=== PATIENT | male | born 1980 | race Caucasian/White ===

== ENCOUNTER 2022-09-07 12:14 | Emergency (ER) | payer MEDICARE, MEDICAID, SELFPAY ==
[2022-09-07 12:22] VITALS: BP 124/94; PULSE 101; RESP 18; TEMP 36.6; O2SAT 97; BMI 26.9
--- NOTE | 2022-09-07 13:53 | ED.GENADULT ---
HPI - General Adult General Chief complaint: Wound/Laceration Stated complaint: R middle finger laceration Time Seen by Provider: 09/07/22 13:38 Source: patient Mode of arrival: ambulatory Limitations: no limitations History of Present Illness HPI narrative: 42 yold male presents to the ED for right middle finger laceration. Patient states he cut his finger by accident with a clean steak knife. Patient denies any other trauma. Patient states up-to-date with tetanus. Patient has complete range of motion of finger. Patient denies any numbness/tingling or decreased movement of finger or extremity. Related Data Allergies Allergy/AdvReac Type Severity Reaction Status Date / Time SEAFOOD Allergy Severe ANAPHYLAXIS Uncoded 12/29/19 15:27 Review of Systems Review of Systems: right middle finger laceration Yes all other systems are reviewed and are negative [facility] Social History Social History Advance Directives: No Advance Directives Information Provided: No Physical Exam ED Vital Signs: Vital Signs - 24 hr 09/07/22 12:22 Temperature 97.8 F Pulse Rate 101 H Respiratory Rate 18 Blood Pressure 124/94 H Pulse Oximetry 97 Oxygen Delivery Method Room Air BMI result Body Mass Index 26.9 Const General: cooperative, healthy appearing, comfortable, no acute distress, well developed, alert, awake and Physically active Orientation/consciousness: oriented to person, oriented to place, oriented to time and patient oriented x3 HENMT Head: Yes normal to inspection, Yes No palpable skull fracture present, Yes normocephalic, Yes atraumatic and No abrasion Eyes General: appearance normal, both eyes and all related structures Neck Neck: Yes normal visual inspection, Yes full ROM, Yes no lymphadenopathy, Yes no meningeal signs, Yes trachea midline, Yes supple, No anterior neck swelling and No tender Chest Chest palpation & inspection: normal inspection of the chest and normal palpation of entire chest wall Resp Effort & Inspection: normal respiratory effort and able to speak in complete sentences Auscultation: clear to auscultation bilaterally Cardio Jugular venous distension: no JVD Heart sounds: S1 normal heart sound present and S2 normal heart sound present GI Inspection: Yes normal to inspection and No abdominal wall ecchymosis Palpation (GI): Soft to palpation, not firm, nontender, no guarding and not rigid General: No CVA tenderness and Yes no CVA tenderness Back/Spine/Pelvis Back: no CVA tenderness, No CVA tenderness and No back tenderness Skin General skin exam: no rashes or lesions noted and elasticity normal Neuro General: oriented to person, oriented to place, oriented to time, patient oriented x3, gait normal, tone normal, moves all extremities, Normal light touch and pain sensation, no meningeal signs, no focal motor deficits, CN's II-XI intact bilaterally and normal sensation to monofilament Extrem General: Yes normal to inspection and Yes full ROM Hand/finger images: 1. Very superficial abrasion. Bleeding controlled. Capillary refills intact. Negative for signs of nerve or tendon injury. Motor/neuro/vascular exam of whole extremity intact Psych Appearance: grossly normal, well kempt and not disheveled Course Course Course Narrative: 42-year-old male with right middle finger laceration abrasion. Up-to-date with tetanus. Medical Decision Making Medical Decision Making [facility] Narrative: 42-year-old male presents to the ED for laceration of right middle finger caused by clean steak knife. Negative for signs of tendon or nerve injury on physical exam. Bleeding controlled. No need for x-ray negative for tenderness on palpation. Wound clean with sterile saline and Betadine iodine. Dermabond placed on abrasion to close Differential Diagnosis Differential Diagnoses: The differential diagnosis associated with the presentation includes (Partial amputation, skin tear, laceration, finger fracture, avulsion,) Tests considered The following testing was considered but not selected: X-ray of hand Discharge Plan Discharge Clinical Impression: Abrasion Patient Disposition: Home, Self-Care Instructions: Abrasion (ED) Additional Instructions: Laceration repair not indicated. Your finger was glued. Keep finger dried the 1st 24 hours. Return to the ED immediately for any swelling, redness, pus discharge, inability to move fingers, fever, chills, blue black discoloration, or any other concerning symptoms. Please follow-up with the primary care provider. Interventions: ED Discharge Assessment Last Done: 09/07/22 14:26 Discharge Date/Time: 09/07/22 14:28 Print Language: Bengali
== END 2022-09-07 14:28 | disposition home or self-care (01) ==
PROVIDERS: Emergency Provider Internal Medicine; PCP Family Medicine
DX: S60.412A Abrasion of right middle finger, initial encounter (principal); M79.641 Pain in right hand; W26.0XXA Contact with knife, initial encounter; Y93.9 Activity, unspecified; Y92.9 Unspecified place or not applicable; Y99.9 Unspecified external cause status
CPT/HCPCS: 12001; 99283

== ENCOUNTER 2022-10-02 05:00 | Emergency (ER) | payer MEDICARE, MEDICAID, SELFPAY ==
[2022-10-02 05:07] VITALS: BP 133/88; PULSE 102; RESP 16; TEMP 36.4; O2SAT 97; BMI 26.6
--- NOTE | 2022-10-02 07:14 | PC.NURSE ---
ATTEMPTED TO CALL PATIENT INTO ED. NO ANSWER IN WAITING ROOM
== END 2022-10-02 07:20 | disposition left against medical advice (07) ==
PROVIDERS: Emergency Provider Emergency Medicine
DX: R22.0 Localized swelling, mass and lump, head (principal)
CPT/HCPCS: 99281

== ENCOUNTER 2024-06-26 13:36 | Emergency (ER) | payer MEDICARE, MEDICAID, SELFPAY ==
--- NOTE | ~2024-06-26 | XR_ITS ---
CLINICAL HISTORY: infection at base of 3rd toe 3 view right foot Comparison: None Findings: No fracture or malalignment. There is joint space narrowing of the 1st metatarsophalangeal joint. No soft tissue gas or bone destruction IMPRESSION: No soft tissue gas or evidence of bone destruction to suggest osteomyelitis. This document has been electronically signed by: Antwan Francois MD on 06/26/2024 17:41:04
[2024-06-26 14:01] VITALS: BP 143/78; PULSE 109; RESP 16; TEMP 36.6; O2SAT 98; BMI 28.7
--- NOTE | 2024-06-26 14:01 | ED.EXTPRO ---
HPI - Extremity Problem General Chief complaint: Skin/Abscess/Foreign Body Stated complaint: RT foot pain Time Seen by Provider: 06/26/24 15:54 History of Present Illness ED Provider: Kelin HU Narrative: The patient is a 43-year-old male who has a history of hidradenitis suppurativa but is otherwise generally healthy. He has no history of diabetes. The patient developed a lesion on the dorsum of his right foot about 6 days ago that seemed like a pimple. He went to his regular doctor's office the next day and was prescribed amoxicillin 875 mg b.i.d.. He has been taking the antibiotic but the area of skin abnormality has gotten bigger and he has developed generalized redness to the dorsum of his foot. He has not had a fever. He does not feel that the redness has spread above his ankle. He denies any injury or foreign body or anything else that might explain how this apparent infection seemed to develop. He denies IV drug use. Related Data Previous Rx's ?Medication ?Instructions ?Recorded cephalexin 500 mg capsule 500 mg PO QID 10 days #40 caps 06/26/24 doxycycline monohydrate 100 mg 100 mg PO BID #20 caps 06/26/24 capsule Allergies Allergy/AdvReac Type Severity Reaction Status Date / Time egg Allergy Gastrointestinal Verified 06/26/24 14:06 Upset SEAFOOD Allergy Severe ANAPHYLAXIS Uncoded 06/26/24 14:06 Review of Systems Review of Systems: Yes all other systems are reviewed and are negative [facility] Social History Social History Advance Directives: No Advance Directives Information Provided: No Physical Exam Vital Signs: Vital Signs: Last Vital Signs Temp 97.7 F 06/26/24 17:57 Pulse 86 06/26/24 17:57 Resp 16 06/26/24 17:57 BP 145/92 H 06/26/24 17:57 Pulse Ox 99 06/26/24 17:57 O2 Del Method Room Air 06/26/24 17:57 BMI result Body Mass Index 28.7 Const: Other: The patient is a slim 43-year-old male who looks as though he is generally in good health. He has obvious skin changes to the dorsum of the right foot but otherwise does not appear obviously acutely ill. HEENT: Other: Face is symmetrical, mucous membranes moist. Eyes: General: appearance normal, both eyes and all related structures Neck: Neck: Yes full ROM Resp: Effort & Inspection: normal respiratory effort Auscultation: clear to auscultation bilaterally Cardio: Rate: regular rate Rhythm: regular rhythm Heart sounds: S1 normal heart sound present and S2 normal heart sound present Skin: Other: The patient has skin changes in the dorsum of the right foot. At the base of the middle toe is a large area of swelling and discoloration to the skin suggestive of an abscess. There is also generalized erythema to the remainder of the dorsum of the right foot. Neuro: Other: The patient is awake and alert with a normal mental status. Cranial nerves are grossly intact. He moves his extremities normally and appropriately. He seems neurologically intact. Normal sensation in the feet. Extrem: Other: The patient has obvious skin changes to the dorsum of the right foot. There is a large area of swelling and discoloration at the base of the right 3rd toe with generalized erythema to the dorsum of the foot. However I am able to put all the joints of the toes through a good range of motion without apparent discomfort. He can move the ankle easily. There is no erythema extending above the ankle. Course Course Course Narrative: This is a Rapid Medical Examination (RME) performed by Gin Choi PA-C in triage. Full HPI, ROS, assessment and treatment plan per primary provider in the Main ED. 43 yo male presents to the ER for evaluation of worsening right foot pain, purple discoloration for the last 5-6 days. seen at PCP last week, had labs and XR at that time. started on PO augmentin for the last 2 days. reports symptoms are getting worse. exam with a large blood blister at the base of the 3rd toe with cellulitis on the top of the foot. no hx DM. denies injury or trauma Plan: ?I&D, labs Medications Administered Discontinued Medications Generic Name Dose Route Start Last Admin Trade Name Freq PRN Reason Stop Dose Admin Bacitracin 1 appl 06/26/24 16:19 06/26/24 16:31 Bacitracin Oint 0.9 Gm Packet TOPICAL 06/26/24 16:20 1 appl ONCE ONE Administration Protocol Ceftriaxone Sodium 2 gm 06/26/24 16:13 06/26/24 16:30 Ceftriaxone Sodium 2 Gm Vial IVPUSH 06/26/24 16:14 2 gm ONCE ONE Administration Doxycycline Hyclate 100 mg/ 250 mls @ 166.67 mls/hr 06/26/24 16:13 06/26/24 17:52 Sodium Chloride IV 06/26/24 17:42 Infused ONCE ONE Infusion Medical Decision Making Medical Decision Making [facility] Narrative: The patient is a 43-year-old male who has a history of hidradenitis suppurativa but who was otherwise in generally good health and does not a diabetic. He has what seems to be an abscess to the skin of the dorsum of the foot at the base of the 3rd toe associated with erythema over the remainder of the dorsum of the foot. The reason for this infection is not clear. He denies any injury. He denies any IV drug use. I made an incision through the abscess and expressed a large amount of pus. This was swabbed and sent for culture. Although the infection on the foot appears impressive the patient is an otherwise healthy 43-year-old who is not a diabetic and there is no lymphangitic streaking up the leg. The patient has not had a fever. He has a white count of 9.8 with 75.1% neutrophils (a minimal left shift) and a minimally elevated CRP of 0.76. X-ray shows no foreign body or bony destruction. The patient was given 2 g of IV ceftriaxone and 100 mg of IV doxycycline after his abscess was opened and drained. Since the patient is otherwise young and fairly healthy and since there does not seem to be signs of systemic illness I think a trial of outpatient management is not unreasonable. He will be prescribed cephalexin and doxycycline. He was given the contact information with surgical office for prompt follow up. Lab Data 06/26/24 14:37 06/26/24 14:37 Labs: Lab Results 06/26/24 Range/Units 14:37 WBC 9.8 (4.8-10.8) X10*3/uL RBC 4.44 L (4.60-5.80) X10*6/uL Hgb 14.1 (14.0-18.0) g/dl Hct 40.7 L (42.0-52.0) % MCV 91.7 (80.0-98.0) fL MCH 31.8 (27.0-33.0) pg MCHC 34.6 (31.0-36.0) g/dl RDW 12.7 (11.0-16.0) % Plt Count 217 (160-400) X10*3/uL MPV 9.1 L (9.4-12.4) fL Immature Gran % (Auto) 0.8 H (0.0-0.4) % Neut % (Auto) 75.1 H (45-73) % Lymph % (Auto) 14.5 L (20-40) % [place] % (Auto) 6.2 (2-11) % Eos % (Auto) 3.0 (0-4) % Baso % (Auto) 0.4 (0-2) % Lymph # (Auto) 1.4 (1.2-4.9) X10*3/uL [place] # (Auto) 0.6 (0.1-1.2) X10*3/uL Eos # (Auto) 0.3 (0.0-0.4) X10*3/uL Baso # (Auto) 0.0 (0.0-0.2) X10*3/uL Abs Immat Gran (auto) 0.08 H (0.00-0.03) X10*3/uL Absolute Neuts (auto) 7.4 (2.0-8.3) x10*3/uL Absolute Nucleated RBC 0.000 (0.0-0.012) X10*3/uL Nucleated RBC % (auto) 0.0 (0.0-0.2) /100WBC ESR 7 (0-15) MM/HR Sodium 141 (135-145) mmol/L Potassium 4.1 (3.3-5.1) mmol/L Chloride 110 H (96-108) mmol/L Carbon Dioxide 25 (22-29) mmol/L Anion Gap 10 L (12-20) BUN 11 (9-16) mg/dL Creatinine 0.88 (0.5-1.4) mg/dL Estim Creat Clear Calc 117.7 Estimated GFR > 60 Random Glucose 95 (60-115) mg/dL Calcium 9.1 (8.4-10.2) mg/dL Magnesium 2.0 (1.6-2.6) mg/dL Total Bilirubin 0.4 (0.0-1.0) mg/dL Direct Bilirubin 0.2 (0.0-0.5) mg/dL AST 23 (5-37) U/L ALT 29 (0-40) U/L Alkaline Phosphatase 75 (39-117) U/L C-Reactive Protein 0.76 H (< or = 0.50) mg/dL Total Protein 7.1 (6.5-8.0) g/dL Albumin 4.1 (3.5-5.0) g/dL Procedures Abscess I/D Site: foot Side (if applicable): right Technique: incised with blade Amount of fluid expressed (mL): 10 Sent for culture/gram staining?: Yes Irrigation: No Packing used?: none Discharge Plan Discharge Clinical Impression: Cellulitis and abscess of foot Patient Disposition: Home, Self-Care Instructions: Cellulitis (ED), Abscess (ED), Incision and Drainage (ED) Additional Instructions: You have an abscess and a cellulitis of the skin of your right foot. The abscess has been opened. For the first few days I would recommend staying off the foot as much as you can. Keep the right foot elevated. You may soak the foot in warm water for 5-10 minutes every few hours. This may help with drainage from your abscess. Please apply bacitracin or Neosporin to the open wound at other times and keep the wound covered with a Band-Aid or gauze. Please take the antibiotics as prescribed. 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 Please call the surgery office in the morning for a follow up appointment in the next few days to check on your abscess. Again I would recommend resting and keeping your right foot elevated and trying to stay off the foot as much as possible. Also stay in touch with your regular doctor's office. Return to the emergency room if you feel things are getting worse instead of better. Prescriptions: New cephalexin 500 mg capsule 500 mg PO QID 10 Days Qty: 40 0RF doxycycline monohydrate 100 mg capsule 100 mg PO BID Qty: 20 0RF [place]: [facility] [Provider Group] (Abscess right foot) Mike Lowry MD [Physician] - (Right foot infection) Interventions: ED Discharge Assessment Last Done: 06/26/24 17:57 Discharge Date/Time: 06/26/24 17:58 Print Language: Andorran
[2024-06-26 14:41] LABS: MANUAL DIFF FLAG NO
[2024-06-26 14:44] LABS: Basophils Percent Auto 0.4 % (0-2); Eosinophils Absolute Auto 0.3 X10*3/uL (0.0-0.4); Hematocrit 40.7 % (42.0-52.0); Hemoglobin 14.1 g/dl (14.0-18.0); Imm Gran Abs Auto 0.08 X10*3/uL (0.00-0.03); Imm Gran Pct Auto 0.8 % (0.0-0.4); Lymphocytes Absolute Auto 1.4 X10*3/uL (1.2-4.9); Lymphocytes Percent Auto 14.5 % (20-40); Mean Corpuscular HGB Conc 34.6 g/dl (31.0-36.0); Mean Corpuscular Hemoglobin 31.8 pg (27.0-33.0); Mean Corpuscular Volume 91.7 fL (80.0-98.0); Mean Platelet Volume 9.1 fL (9.4-12.4); Monocytes Absolute Auto 0.6 X10*3/uL (0.1-1.2); Monocytes Percent Auto 6.2 % (2-11); Neutrophils Absolute Auto 7.4 x10*3/uL (2.0-8.3); Neutrophils Percent Auto 75.1 % (45-73); Platelet Count 217 X10*3/uL (160-400); Red Blood Count 4.44 X10*6/uL (4.60-5.80); Red Cell Distribution Width 12.7 % (11.0-16.0); White Blood Count 9.8 X10*3/uL (4.8-10.8)
[2024-06-26 15:04] LABS: Alanine Aminotransferase 29 U/L (0-40); Albumin Level 4.1 g/dL (3.5-5.0); Alkaline Phosphatase 75 U/L (39-117); Anion Gap 10 (12-20); Aspartate Amino Transferase 23 U/L (5-37); Bilirubin Direct 0.2 mg/dL (0.0-0.5); Bilirubin Total 0.4 mg/dL (0.0-1.0); Blood Urea Nitrogen 11 mg/dL (9-16); C Reactive Protein 0.76 mg/dL (< or = 0.50); Calcium 9.1 mg/dL (8.4-10.2); Carbon Dioxide 25 mmol/L (22-29); Chloride 110 mmol/L (96-108); Creatinine Clr Calc Pharmacy 117.7; Estimated Glomerular Filt Rate > 60; Glucose Random 95 mg/dL (60-115); Potassium 4.1 mmol/L (3.3-5.1); Sodium 141 mmol/L (135-145); Total Protein 7.1 g/dL (6.5-8.0)
[2024-06-26 15:29] LABS: Erythrocyte Sedimentation Rate 7 MM/HR (0-15)
[2024-06-26] MEDS: cefTRIAXone sodium 2 GM VIAL IVPUSH (16:30)
[2024-06-26] MEDS: Doxycycline Hyclate 100 MG in 0.9 % Sodium Chloride 250 ML 166.67 MG IV (16:31)
[2024-06-26] MEDS: Bacitracin Oint 0.9 GM PACKET 1 APPL TOPICAL (16:31)
[2024-06-26 16:38] VITALS: BP 145/92; PULSE 86; RESP 16; TEMP 36.5; O2SAT 99
[2024-06-26 17:57] VITALS: BP 145/92; PULSE 86; RESP 16; TEMP 36.5; O2SAT 99
== END 2024-06-26 17:58 | disposition home or self-care (01) ==
PROVIDERS: Physician Assistant; Emergency Provider Emergency Medicine
DX: L03.115 Cellulitis of right lower limb (principal); L02.611 Cutaneous abscess of right foot; M79.671 Pain in right foot
CPT/HCPCS: 10060; 36415; 73630; 80048; 80076; 83735; 85025; 85652; 86140; 87070; 87077; 87186; 87205; 96365; 96375; 99283; 99284; J0696

== ENCOUNTER → 2024-06-26 16:21 | Outpatient (BNV) | payer MEDICARE, MEDICAID, SELFPAY | PROVIDERS: Emergency Provider Emergency Medicine; Visit Provider Radiology Vascular & Interventional Radiology | DX: L08.9 Local infection of the skin and subcutaneous tissue, unspecified (principal) | CPT/HCPCS: 73630 ==

== ENCOUNTER 2024-06-30 10:44 | Outpatient (AMB) | payer MEDICARE, MEDICAID, SELFPAY ==
--- NOTE | 2024-06-30 10:52 | MHC.OFFVIS ---
Vital Signs 06/30/24 11:04 Height 5 ft 8 in Weight 189 lb BMI 28.7 BP 148/88 H Blood Pressure Location Rt brachial Position Sitting Pulse 98 Pulse Source Pulse Oximeter Pulse Oximetry (%) 96 Oxygen Delivery Method Room Air Intake Visit Reasons: infected foot wound Intake Note: ESTABLISHED PATIENT for ER FUV. Seen 06/26 for R foot pain + infection. Abx therapy rx'd by ED. Chief Complaint; Pt denies any specific concerns at this time. FUV regarding abx and to have physical eval of the foot. Allergies egg Allergy (Verified 06/26/24 14:06) Gastrointestinal Upset SEAFOOD Allergy (Severe, Uncoded 06/26/24 14:06) ANAPHYLAXIS HPI Comments Details: Patient presents with a friend to have evaluation/follow-up of a dorsum of right foot wound. He had this incised and drained in the ER a few days ago and presents here for further evaluation. He is completing his antibiotic course. Chart was reviewed and patient evaluated. He has never had such a problem before although he has history of hidradenitis suppurativa which is unrelated to this. Physical Exam Vital Signs: Last Vital Signs Pulse 98 06/30/24 11:04 BP 148/88 H 06/30/24 11:04 Pulse Ox 96 06/30/24 11:04 Oxygen Delivery Method Room Air 06/30/24 11:04 BMI result Body Mass Index 28.7 Extrem Other: Dorsum distal right foot roughly 3 x 2 cm area of in the 1st and 2nd toe demonstrating granulating tissue but no active infection or cellulitis. Bacitracin and sterile dressing applied Assessment & Plan Assessment & Plan (1) Wound, open, foot: Code(s): S91.309A - Unspecified open wound, unspecified foot, initial encounter Category: Surgical Plan Patient was been given local instructions including a daily dressing change preceded by shower and bacitracin and dressing, elevate the extremity as much as possible and we will see me as directed or p.r.n.. All questions answered. Explained to him that he will have an eschar/scab followed by new skin which were placed through scab. This process will take anywhere from 2-3 weeks time. Coding Level of Care Code New Pt Level 4 (73051) Diagnoses Wound, open, foot S91.309A
[2024-06-30 11:04] VITALS: BP 148/88; PULSE 98; O2SAT 96; BMI 28.7
== END 2024-06-30 11:07 | disposition home or self-care (01) ==
PROVIDERS: Visit Provider Surgery
DX: S91.309A Unspecified open wound, unspecified foot, initial encounter (principal)
CPT/HCPCS: 99204

== ENCOUNTER → 2024-06-30 10:44 | Outpatient (BNVA) | payer MEDICARE, MEDICAID, SELFPAY | PROVIDERS: Visit Provider Surgery | DX: S91.301D Unspecified open wound, right foot, subsequent encounter (principal); X58.XXXD Exposure to other specified factors, subsequent encounter; Z79.2 Long term (current) use of antibiotics | CPT/HCPCS: 99202 ==

== ENCOUNTER 2024-07-11 12:47 | Outpatient (AMB) | payer MEDICARE, MEDICAID, SELFPAY ==
--- NOTE | 2024-07-11 12:49 | MHC.OFFVIS ---
Intake Visit Reasons: 1 week follow up infected foot wound Intake Note: Patient here for 1wk follow up Rt dorsal foot abscess. Reports improvement with Bacitracin ointment. Completed Cephalexin, Doxycycline course. Patient c/o: keeps it covered but denies oozing, bleeding. Build Engineer Required: No Accompanied by: Self / Same As Patient Allergies egg Allergy (Verified 07/11/24 13:04) Gastrointestinal Upset SEAFOOD Allergy (Severe, Uncoded 07/11/24 13:04) ANAPHYLAXIS HPI Comments Details: Patient presents for follow-up of dorsum right foot wound. He says it has markedly decreased in his symptoms and size. He has been undergoing local wound care and foreign bacitracin Physical Exam Extrem Other: Patient has an appreciable decreased in size to the dorsum of right foot wound. It is just slightly larger than that of a quarter and granulating well. Bacitracin and sterile dressing applied. Assessment & Plan Assessment & Plan (1) Wound, open, foot: Code(s): S91.309A - Unspecified open wound, unspecified foot, initial encounter Category: Surgical Plan Patient was been given local instructions as he has been doing and will otherwise follow-up p.r.n.. All questions answered. Coding Level of Care Code Tele New Pt Level 4 (63066) Diagnoses Wound, open, foot S91.309A
--- OUTSIDE RECORDS SUMMARY | 2024-07-11 14:23 | XMS_ITS | Patient Health Record ---
Author Organization [facility] Address [address] [address] Care Team Providers Care Groundskeeping Maintenance Name Role Phone Malik Ewing Primary Care Provider UnavailKELLEE Chaparro Unavailable [phone] Reason For Referral No Information Medications Medication SIG (Take, Route, Frequency, Duration) Notes Start Date End Date Status [place] Carbonate ER 450 MG TAKE 1 TABLET BY MOUTH TWICE DAILY Oral for 90 Active QUEtiapine Fumarate ER 300 MG TAKE 2 TABLETS BY MOUTH EVERY EVENING Oral for 61 Active Ventolin HFA 108 (90 Base) MCG/ACT INHALE 2 PUFFS FOUR TIMES DAILY Inhalation for 25 Active Pantoprazole Sodium 40 MG TK 1 T PO QD O ral for 90 Active Montelukast Sodium 10 MG TK 1 T PO QD Or al for 90 Active Propranolol HCl 10 MG 1 tab qhs x 1wk, t hen inc to 2 tab qhs x 1wk, then inc to 3 tab qhs x 1wk, then inc to 4 tab qhs Orally for 30 day(s) 06/18/2020 Active Carbidopa-Levodopa 25-100 MG Oral for 90 Not-Taking ALPRAZolam 2 MG (Schedule IV Drug) T COLIN 1 TABLET BY MOUTH TWICE DAILY Oral for 30 Active Social History Tobacco Use: Social History Observation Description Date Details (start date - stop date) Current Smoker NA - NA Tobacco Use/Smoking Question Answer Notes Are you a current smoker How often do you smoke cigarettes? every day How many cigarettes a day do you smoke? 11-20 Tobacco use other than smoking: Question Answer Notes Are you an other tobacco user? 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 Problem Anxiety (31868068) Anxiety (F41.9) Active confirmed Problem Tremor (66209456) Tremor (R25.1) Active confirmed Problem Bipolar 1 disorder (054410973) Bipolar 1 disorder (F31.9) Active confirmed Problem Smoker (63386271) Smoker (F17.200) Active confirmed Plan Of Treatment Pending Test Test Name Order Date PROTEIN, TOTAL AND PROTEIN ELECTROPHORES IS W/ REFL GEE 06/18/2020 COMPREHENSIVE METABOLIC PANEL 06/18/2020 CBC (H/H, RBC, INDICES, WBC, PLT) 2020 LYME DISEASE AB W/REFL TO BLOT (IGG, IGM ) 06/18/2020 BALDEMAR IFA, W/REFL TO TITER/PATTERN/CASCADE 06/18/2020 VITAMIN B12/FOLATE, SERUM PANEL 06/19/19 FERRITIN 06/18/2020 TSH W/REFLEX TO FT4 06/18/2020 VITAMIN B1 (THIAMINE), BLOOD, LC/MS/MS 0 06/18/2020 VITAMIN E (TOCOPHEROL) 06/18/2020 Insurance Providers Payer Name Payer Address Payer Phone Subscriber Number Group Number Insured Name Patient Relationship to Insured Coverage Start Date Coverage End Date MEDICARE [address] [place], [place] [id number] Nelly Kevin Self - patient is the insured [facility] [address] [place] [phone] [id number] Nelly Kevin Self - patient is the insured Medical (General) History Medical History History ICD Code Tremor R25.1 Asthma J45.909 bipolar disorder GERD IBS Vitamin D deficiency asthma Surgical History Surgery Date(Month/Year) tubes in ears
== END 2024-07-11 13:11 | disposition home or self-care (01) ==
PROVIDERS: Visit Provider Surgery
DX: S91.309A Unspecified open wound, unspecified foot, initial encounter (principal)
CPT/HCPCS: 99213

== ENCOUNTER → 2024-07-11 12:47 | Outpatient (BNVA) | payer MEDICARE, MEDICAID, SELFPAY | PROVIDERS: Visit Provider Surgery | DX: S91.301D Unspecified open wound, right foot, subsequent encounter (principal); X58.XXXD Exposure to other specified factors, subsequent encounter | CPT/HCPCS: 99212 ==

== ENCOUNTER 2024-09-02 08:16 | Inpatient (IN) | payer MEDICARE, MEDICAID, SELFPAY ==
[2024-09-02] VITALS (13 sets, daily range): BP systolic 126–164; BP diastolic 62–95; PULSE 73–112; RESP 13–18; TEMP 36.9–37.4; O2SAT 93–99; BMI 25.2; BMI 27.6
--- NOTE | ~2024-09-02 | CT_ITS ---
EXAMINATION: CT ABDOMEN AND PELVIS WITH CONTRAST CLINICAL INFORMATION: Right lower quadrant pain. COMPARISON: None available. TECHNIQUE: Multidetector volumetric images were obtained from the superior aspect of the liver through the pubic symphysis following administration 85 mL of Omnipaque 350 intravenous contrast. Sagittal and coronal reformatted images were obtained on the technologist's workstation. Oral contrast: No This CT examination was performed using dose optimization techniques as appropriate, variously including the following: *Automated exposure control *Adjustment of mA and/or kV according to patient size (this includes techniques or standardized protocols for targeted exams where dose is matched to indication/reason for exam; i.e. extremities or head) *Use of iterative reconstruction technique DLP: 469 mGy centimeter. FINDINGS: LUNG BASES: Subsegmental atelectasis, lung bases. LIVER, GALLBLADDER, AND BILIARY TREE: Liver measures 15 cm. 9 mm hypodensity in the dome of the left hepatic lobe. Portal veins, hepatic veins and intrahepatic portion of the IVC are patent. No pericholecystic fluid collection or gallbladder wall thickening. No intrahepatic or extrahepatic biliary ductal dilatation. PANCREAS: No focal mass. No peripancreatic fluid collection. No main pancreatic ductal dilatation. SPLEEN: 10 cm. No focal lesion. ADRENAL GLANDS: No nodular lesions. KIDNEYS AND URETERS: No hydronephrosis. No gross renal mass.] 2 mm nonobstructing calculus in the right kidney. 1.2 cm cyst, left kidney. BLADDER: Fluid-filled prominent and extending suprapubic just below the umbilicus. GASTROINTESTINAL TRACT: There is a 1.8 cm maximum diameter retrocecal appendix with edematous/thickened wall and narrowed lumen. There is periappendiceal edema pattern trace of fluid. No peripheral enhancing fluid collection. No overt pneumoperitoneum. Scattered air-fluid levels in the small bowel loops right hemiabdomen. Abundant stool within the large intestine. No pneumatosis intestinalis. ABDOMINAL WALL: Fat-containing umbilical and periumbilical hernia. LYMPH NODES: Mild prominent mesenteric. VASCULAR: No aneurysm or dissection, abdominal aorta. Mixed plaques in the distal abdominal aorta wall and right femoral arteries. PELVIC VISCERA: Not enlarged prostate gland. OSSEOUS STRUCTURES: Multilevel thoracolumbar spondylosis more pronounced from L1-2 to L3-4 levels resulting in grade 1 retrolisthesis L2-3 and L3-4 and L4-5 levels. Spondylolysis pars interarticularis resulting in grade 1 anterolisthesis at L5-S1. S-shaped curvature of the lumbar spine with a levoconvex rotatory component apex at L2-[address]/CT abdomen pelvis w IV con IMPRESSION: Acute probably nonruptured retrocecal appendicitis with the periappendiceal edema pattern in no overt abscess or pneumoperitoneum. Reactive prominent mesenteric lymph nodes and regional ileus. Fleischner guidelines were followed. Electronically signed by: Jose Raya MD 09/02/2024 11:27 AM EDT
--- OUTSIDE RECORDS SUMMARY | 2024-09-02 08:33 | XMS_ITS | Patient Health Record ---
Author Organization 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 [address] [place] [phone] [id number] Nelly Kevin Self - patient is the insured Medical (General) History Medical History History ICD Code Tremor R25.1 Asthma J45.909 bipolar disorder GERD IBS Vitamin D deficiency asthma Surgical History Surgery Date(Month/Year) tubes in ears
--- NOTE | 2024-09-02 09:01 | ED.ABDPAIN ---
HPI - Abdominal Pain General Chief Complaint: Abdominal Pain Stated Complaint: Abdominal Pain Time Seen by Provider: 09/02/24 08:55 Source: patient Mode of arrival: ambulatory Limitations: no limitations History of Present Illness ED Provider: GABRIELLE FLANNERY PA-C HPI narrative: 44 year old male with no significant pmhx presents to the ED today for evaluation of RLQ x2 days. Pain is localized to RLQ and progressively worsening over the last 2 days. No radiation. he has not trialed any pqop-pwf-[id number] pain medications for symptoms. Denies any history of abdominal surgery. Denies fever, chills, sore throat, chest pain, shortness of breath, nausea/vomiting / diarrhea, constipation,flank pain or urinary symptoms. Related Data Home Medications ?Medication ?Instructions ?Recorded ?Confirmed alprazolam 2 mg tablet 2 mg PO BID 06/30/24 07/11/24 epinephrine 0.3 mg/0.3 mL IM ONCE 06/30/24 07/11/24 injection, auto-injector lithium carbonate 450 mg 450 mg PO BID 06/30/24 07/11/24 tablet,extended release quetiapine 300 mg tablet,extended mg PO 06/30/24 07/11/24 release 24 hr Allergies Allergy/AdvReac Type Severity Reaction Status Date / Time egg Allergy Gastrointestinal Verified 09/02/24 08:21 Upset SEAFOOD Allergy Severe ANAPHYLAXIS Uncoded 09/02/24 08:21 Review of Systems Review of Systems Yes all other systems are reviewed and are negative [facility] Past Medical History Attestation statement: The following information was validated with the patient. Source: old records reviewed and nursing notes reviewed Social History Social History Smoked in Last 30 Days: Yes Use of substances other than those prescribed or required for medical reasons: No Advance Directives: No Advance Directives Information Provided: No Physical Exam ED Vital Signs: Vital Signs - 24 hr 09/02/24 08:19 09/02/24 09:27 09/02/24 09:56 Temperature 99 F Pulse Rate 112 H 108 H 112 H Respiratory Rate 18 18 16 Blood Pressure 138/86 143/90 H 138/93 H Pulse Oximetry 98 99 98 Oxygen Delivery Method Room Air Room Air Room Air 09/02/24 12:05 Temperature 98.4 F Pulse Rate 92 Respiratory Rate 16 Blood Pressure 141/76 H Pulse Oximetry 99 Oxygen Delivery Method Room Air BMI result Body Mass Index 25.2 tachycardic, afebrile General: Well appearing, in no acute distress. Skin: Warm, dry, intact. No rashes or lesions. Head: Normocephalic, atraumatic. EENT: Hearing is intact b/l. Conjunctiva clear. Sclera is anicteric. PERRLA. EOM intact. Moist mucous membranes.? Cardiac: Chest wall symmetric. RRR Lungs: Normal respiratory effort without accessory muscle use. CTA bilaterally Abdomen: soft nondistended, tender to palpation of right lower quadrant with guarding. No rebound. Negative Rovsing sign. active bs x4. Back: No midline spinous or paraspinal tenderness. No step off deformity. Ext: Upper and lower extremities atraumatic, without tenderness, deformity, swelling or erythema Neuro: AOx3. Normal speech. Ambulating with steady gait. Course Course Course Narrative: 1126 -- CBC without leukocytosis however neutrophils elevated to 85%. No anemia. H&H stable. Chemistry without acute electrolyte abnormality requiring intervention. No ARELIS. Random glucose 130, normal liver function. Normal CRP. Lipase WNL. Negative COVID, flu, RSV. > received call from radiologist Dr. Raya regarding CT a/p -- CT showing acute probably non ruptured retrocecal appendicitis with periappendiceal edema pattern, no overt abscess or pneumoperitoneum. There are reactive prominent mesenteric lymph nodes and regional ileus. > call out to General surgery > lactic, blood cultures, Zosyn ordered > discussed all workup results with patient. Reporting mild improvement in pain with morphine. Dilaudid ordered.anticipate admission to general surgery service for OR 1248-- Spoke with on-call GI surgeon, Dr. Robert who will be admitting patient for acute appendicitis with plan for OR later today. Patient agreeable. Medical Decision Making Medical Decision Making MDM Narrative: 32 year old female presents to the ED today for evaluation of sore throat, odynophagia, dysphagia, fever, headaches, and decreased PO intake x3 days. Patient is tachycardic, afebrile. He is ill appearing. On exam, abdomen is soft, nondistended, tender to palpation of right lower quadrant with guarding, no rebound tenderness. Negative Rovsing sign. Active bowel sounds x4. No CVAT. Differential diagnoses: appendicitis, diverticulitis, diverticulosis, UTI, constipation. Abdominal exam without peritoneal signs. No evidence of acute abdomen at this time. Well appearing. Low suspicion for acute hepatobiliary disease (including acute cholecystitis), acute infectious processes (pneumonia, hepatitis), vascular catastrophe, bowel obstruction or viscus perforation, testicular torsion, orchitis, epididymitis. Presentation not consistent with other acute, emergent causes of abdominal pain at this time. Plan: labs, UA, CT AP, pain control, fluids, serial reassessment Differential Diagnosis Differential Diagnoses: The differential diagnosis associated with the presentation includes As above Admission/Observation Consideration of admission/observation: Escalation of care including admission/observation considered Patient admitted to surgical service for management of acute appendicitis Consult Healthcare Provider Management of the patient was discussed with: [employer] (general surgery - dr. robert) Lab Data MDM Lab Attestation statement: I reviewed the patient's lab results. as above 09/02/24 09:24 09/02/24 09:24 Labs: Lab Results 09/02/24 09/02/24 09/02/24 Range/Units 09:24 11:42 11:57 WBC 10.0 (4.8-10.8) X10*3/uL RBC 4.82 (4.60-5.80) X10*6/uL Hgb 15.3 (14.0-18.0) g/dl Hct 44.3 (42.0-52.0) % MCV 91.9 (80.0-98.0) fL MCH 31.7 (27.0-33.0) pg MCHC 34.5 (31.0-36.0) g/dl RDW 12.7 (11.0-16.0) % Plt Count 204 (160-400) X10*3/uL MPV 9.8 (9.4-12.4) fL Immature Gran % (Auto) 0.5 H (0.0-0.4) % Neut % (Auto) 85.9 H (45-73) % Lymph % (Auto) 8.0 L (20-40) % [place] % (Auto) 5.0 (2-11) % Eos % (Auto) 0.2 (0-4) % Baso % (Auto) 0.4 (0-2) % Lymph # (Auto) 0.8 L (1.2-4.9) X10*3/uL [place] # (Auto) 0.5 (0.1-1.2) X10*3/uL Eos # (Auto) 0.0 (0.0-0.4) X10*3/uL Baso # (Auto) 0.0 (0.0-0.2) X10*3/uL Abs Immat Gran (auto) 0.05 H (0.00-0.03) X10*3/uL Absolute Neuts (auto) 8.6 H (2.0-8.3) x10*3/uL Absolute Nucleated RBC 0.000 (0.0-0.012) X10*3/uL Nucleated RBC % (auto) 0.0 (0.0-0.2) /100WBC Sodium 139 (135-145) mmol/L Potassium 4.1 (3.3-5.1) mmol/L Chloride 109 H (96-108) mmol/L Carbon Dioxide 24 (22-29) mmol/L Anion Gap 10 L (12-20) BUN 6 L (9-16) mg/dL Creatinine 0.79 (0.5-1.4) mg/dL Estim Creat Clear Calc 117.8 Estimated GFR > 60 Random Glucose 130 H (60-115) mg/dL Lactic Acid 0.7 (0.5-2.0) mmol/L Calcium 9.6 (8.4-10.2) mg/dL Magnesium 1.8 (1.6-2.6) mg/dL Total Bilirubin 0.7 (0.0-1.0) mg/dL AST 23 (5-37) U/L ALT 24 (0-40) U/L Alkaline Phosphatase 87 (39-117) U/L C-Reactive Protein 0.14 (< or = 0.50) mg/dL Total Protein 7.1 (6.5-8.0) g/dL Albumin 4.5 (3.5-5.0) g/dL Lipase 72 (8-78) U/L Urine Color Yellow Urine Appearance Clear Urine pH 7.0 (5.0-9.0) Ur Specific [place] 1.015 (1.005-1.025) Urine Protein 30 (1+) H (Neg-Trace) mg/dL Urine Glucose (UA) Negative (Negative) mg/dL Urine Ketones Trace (Negative) mg/dL Urine Blood Negative (Negative) Urine Nitrite Negative (Negative) Ur Leukocyte Esterase Negative (Negative) Urine RBC 0-2 (0-2) /HPF Urine WBC 0-5 (0-5) /HPF Ur Squamous Epith Cells 0-2 (0-2) /HPF Urine Bacteria None Seen (None Seen) Hyaline Casts 0-2 (0-2) /LPF Influenza Type A (PCR) NEGATIVE (Negative) Influenza Type B (PCR) NEGATIVE (Negative) RSV RNA Qual (PCR) NEGATIVE (Negative) SARS-CoV-2 RNA (RT-PCR) NEGATIVE (Negative) Independent Interpretation I performed an independent interpretation of an: CT Scan Interpretation: ct a/p showing periappendiceal inflammation Radiology Impression Discussion of test interpretation with radiology: I have reviewed the radiologist's reading. Radiologist Impression: Date of Service: 09/02/24 Procedure(s): CT abdomen pelvis w IV con Accession Number(s): [id number] cc: Mike Lowry MD; Gabrielle Flannery~ Report Number: [id number]: Total DLP = 469.00 mGy-cm EXAMINATION: CT ABDOMEN AND PELVIS WITH CONTRAST CLINICAL INFORMATION: Right lower quadrant pain. COMPARISON: None available. TECHNIQUE: Multidetector volumetric images were obtained from the superior aspect of the liver through the pubic symphysis following administration 85 mL of Omnipaque 350 intravenous contrast. Sagittal and coronal reformatted images were obtained on the technologist's workstation. Oral contrast: No This CT examination was performed using dose optimization techniques as appropriate, variously including the following: *Automated exposure control *Adjustment of mA and/or kV according to patient size (this includes techniques or standardized protocols for targeted exams where dose is matched to indication/reason for exam; i.e. extremities or head) *Use of iterative reconstruction technique DLP: 469 mGy centimeter. FINDINGS: LUNG BASES: Subsegmental atelectasis, lung bases. LIVER, GALLBLADDER, AND BILIARY TREE: Liver measures 15 cm. 9 mm hypodensity in the dome of the left hepatic lobe. Portal veins, hepatic veins and intrahepatic portion of the IVC are patent. No pericholecystic fluid collection or gallbladder wall thickening. No intrahepatic or extrahepatic biliary ductal dilatation. PANCREAS: No focal mass. No peripancreatic fluid collection. No main pancreatic ductal dilatation. SPLEEN: 10 cm. No focal lesion. ADRENAL GLANDS: No nodular lesions. KIDNEYS AND URETERS: No hydronephrosis. No gross renal mass.] 2 mm nonobstructing calculus in the right kidney. 1.2 cm cyst, left kidney. BLADDER: Fluid-filled prominent and extending suprapubic just below the umbilicus. GASTROINTESTINAL TRACT: There is a 1.8 cm maximum diameter retrocecal appendix with edematous/thickened wall and narrowed lumen. There is periappendiceal edema pattern trace of fluid. No peripheral enhancing fluid collection. No overt pneumoperitoneum. Scattered air-fluid levels in the small bowel loops right hemiabdomen. Abundant stool within the large intestine. No pneumatosis intestinalis. ABDOMINAL WALL: Fat-containing umbilical and periumbilical hernia. LYMPH NODES: Mild prominent mesenteric. VASCULAR: No aneurysm or dissection, abdominal aorta. Mixed plaques in the distal abdominal aorta wall and right femoral arteries. PELVIC VISCERA: Not enlarged prostate gland. OSSEOUS STRUCTURES: Multilevel thoracolumbar spondylosis more pronounced from L1-2 to L3-4 levels resulting in grade 1 retrolisthesis L2-3 and L3-4 and L4-5 levels. Spondylolysis pars interarticularis resulting in grade 1 anterolisthesis at L5-S1. S-shaped curvature of the lumbar spine with a levoconvex rotatory component apex at L2-[address]/CT abdomen pelvis w IV con IMPRESSION: Acute probably nonruptured retrocecal appendicitis with the periappendiceal edema pattern in no overt abscess or pneumoperitoneum. Reactive prominent mesenteric lymph nodes and regional ileus. Fleischner guidelines were followed. Electronically signed by: Jose Raya MD 09/02/2024 11:27 AM EDT External Record Review External record reviewed: Inpatient record Prescription Management I considered prescription management with: Pain Medication and Antibiotic Social Determinants Patient?s care significantly limited by Social Determinants of Health including: Other Social Determinant of Health Medications Administered Discontinued Medications Generic Name Dose Route Start Last Admin Trade Name Freq PRN Reason Stop Dose Admin Hydromorphone HCl 0.5 mg 09/02/24 11:24 09/02/24 11:40 Hydromorphone Hcl 0.5 Mg/0.5 Ml Syringe IVPUSH 09/02/24 11:25 0.5 mg ONCE ONE Administration Protocol Sodium Chloride 1,000 mls @ 999 mls/hr 09/02/24 09:15 09/02/24 11:58 Ns IV 09/02/24 10:15 Infused .Q1H1M LUIS ALFREDO Infusion Piperacillin Sod/Tazobactam 50 mls @ 100 mls/hr 09/02/24 11:24 09/02/24 11:55 Sod 3.375 gm/ Sodium Chloride IV 09/02/24 11:53 100 mls/hr ONCE ONE Administration Iohexol 85 ml 09/02/24 11:16 09/02/24 11:17 Iohexol 350 Mg/Ml 100 Ml Infus..Btl IV 09/02/24 11:17 85 ml ONCE ONE Administration Morphine Sulfate 4 mg 09/02/24 09:05 09/02/24 09:24 Morphine Sulfate 4 Mg/Ml Cartridge IVPUSH 09/02/24 09:06 4 mg ONCE ONE Administration Protocol Critical Care Time Critical Care Time Critical Care Time: Yes Total Critical Care Time: 41 Attestation: Critical care time in the amount of 41 minutes has been provided to the patient in terms of direct patient care, frequent reevaluation, consultation with general surgery, review and interpretation of medical data and results, and management of potentially life-threatening conditions. This is all outside of any medical procedures. Discharge Plan Discharge Clinical Impression: Acute appendicitis Patient Disposition: Admitted As Inpatient
[2024-09-02] MEDS: Morphine Sulfate 4 MG/ML CARTRIDGE IVPUSH ×2 (09:24→15:52)
[2024-09-02] MEDS: 0.9 % Sodium Chloride 1,000 ML 999 ML IV (09:25)
[2024-09-02 09:34] LABS: MANUAL DIFF FLAG NO
[2024-09-02 09:40] LABS: Basophils Percent Auto 0.4 % (0-2); Eosinophils Percent Auto 0.2 % (0-4); Hematocrit 44.3 % (42.0-52.0); Hemoglobin 15.3 g/dl (14.0-18.0); Imm Gran Abs Auto 0.05 X10*3/uL (0.00-0.03); Imm Gran Pct Auto 0.5 % (0.0-0.4); Lymphocytes Absolute Auto 0.8 X10*3/uL (1.2-4.9); Mean Corpuscular HGB Conc 34.5 g/dl (31.0-36.0); Mean Corpuscular Hemoglobin 31.7 pg (27.0-33.0); Mean Corpuscular Volume 91.9 fL (80.0-98.0); Mean Platelet Volume 9.8 fL (9.4-12.4); Monocytes Absolute Auto 0.5 X10*3/uL (0.1-1.2); Neutrophils Absolute Auto 8.6 x10*3/uL (2.0-8.3); Neutrophils Percent Auto 85.9 % (45-73); Platelet Count 204 X10*3/uL (160-400); Red Blood Count 4.82 X10*6/uL (4.60-5.80); Red Cell Distribution Width 12.7 % (11.0-16.0)
[2024-09-02 09:52] LABS: Alanine Aminotransferase 24 U/L (0-40); Albumin Level 4.5 g/dL (3.5-5.0); Alkaline Phosphatase 87 U/L (39-117); Anion Gap 10 (12-20); Aspartate Amino Transferase 23 U/L (5-37); Bilirubin Total 0.7 mg/dL (0.0-1.0); Blood Urea Nitrogen 6 mg/dL (9-16); C Reactive Protein 0.14 mg/dL (< or = 0.50); Calcium 9.6 mg/dL (8.4-10.2); Carbon Dioxide 24 mmol/L (22-29); Chloride 109 mmol/L (96-108); Creatinine Clr Calc Pharmacy 117.8; Estimated Glomerular Filt Rate > 60; Glucose Random 130 mg/dL (60-115); Lipase 72 U/L (8-78); Magnesium 1.8 mg/dL (1.6-2.6); Potassium 4.1 mmol/L (3.3-5.1); Sodium 139 mmol/L (135-145); Total Protein 7.1 g/dL (6.5-8.0)
[2024-09-02 10:15] LABS: Influenza A PCR NEGATIVE (Negative); Influenza B PCR NEGATIVE (Negative); Resp Syncy Virus RNA Qual PCR NEGATIVE (Negative); SARS COV2 PCR INHOUSE NEGATIVE (Negative)
[2024-09-02] MEDS: iohexoL 350 MG/ML 100 ML INFUS..BTL 85 ML IV (11:17)
[2024-09-02] MEDS: HYDROmorphone HCl 0.5 MG/0.5 ML SYRINGE IVPUSH (11:40)
--- NOTE | 2024-09-02 11:50 | PC.NURSE ---
Patient presents with right sided abdominal pain. Patient alert and oriented. Lungs clear bilat. Respirations even and non-labored. Abdomen sl firm, distended with mid right sided tenderness. CT shows Acute probably nonruptured retrocecal appendicitis with the periappendiceal edema pattern in no overt abscess or pneumoperitoneum. Reactive prominent mesenteric lymph nodes and regional ileus. Positive pedal pulses with no edema. Family at the bedside.
[2024-09-02] MEDS: Piperacillin Sodium/Tazobactam 3.375 GM in 0.9 % Sodium Chloride 50 ML IV ×2 (11:55→17:31)
[2024-09-02 12:02] LABS: Lactic Acid 0.7 mmol/L (0.5-2.0)
[2024-09-02 12:12] LABS: Appearance Urine Clear; Color Urine Yellow; Glucose Urine UA Negative (Negative); Leukocyte Esterase Urine Negative (Negative); Nitrite Urine Negative (Negative); Specific Gravity - Urine 1.015 (1.005-1.025); UMIC TRIGGER UACC YES; Urine Blood Negative (Negative); Urine Ketones Trace mg/dL (Negative); Urine Protein 30 (1+) mg/dL (Neg-Trace)
[2024-09-02 12:15] LABS: Bacteria Urine None Seen (None Seen); Hyaline Casts Urine 0-2 /LPF (0-2); RBC Urine 0-2 /HPF (0-2); Squamous Epithelial Cell Urine 0-2 /HPF (0-2); WBC Urine 0-5 /HPF (0-5)
--- NOTE | 2024-09-02 13:01 | PC.NURSE ---
Report given to preop
--- NOTE | 2024-09-02 13:25 | P.HPGS_ITS ---
History of Present Illness History of Present Illness Date of Service: 09/02/24 Chief complaint: Abdominal Pain Narrative: Nelly Kevin is a 44 year old male who presents with a 2 day history of abdominal pain now settling into the right lower quadrant. He had no evidence of any fevers or chills he did feel little nauseated did not throw up no diarrhea no other sick contacts. He initially thought it was just something that he ate but as things progress last night where he woke up and can sleep and started feeling more pain on the right side and then this morning he came to the emergency room. Here white count is normal but he is tender in the right lower quadrant some mild guarding. CT scan of the abdomen and pelvis was carried out which shows retrocecal appendix that is thickened some inflammatory changes no evidence of abscess or perforation. He has had no previous surgeries and has a mainly baseline history of some bipolar disease for which he takes medications and they are doing well. Patient is here with his mom and his brother and sister. His brother Basilio is his proxy. Review of Systems Review of Systems: Yes all other systems are reviewed and are negative [facility] Social History Social History Smoked in Last 30 Days: Yes Use of substances other than those prescribed or required for medical reasons: No Advance Directives: No Advance Directives Information Provided: No Meds Allergies Allergy/AdvReac Type Severity Reaction Status Date / Time egg Allergy Gastrointestinal Verified 09/02/24 08:21 Upset SEAFOOD Allergy Severe ANAPHYLAXIS Uncoded 09/02/24 08:21 Active Medications: Current Medications Acetaminophen (Acetaminophen 325 Mg Tablet) 650 mg PO Q6H PRN PRN Reason: Pain, Mild 1-3,fever,headache Calcium Carbonate (Calcium Carbonate 750 Mg Tab.Chew) 750 mg PO Q4H PRN PRN Reason: Heartburn Lactated Ringer's (Lr) 1,000 mls @ 125 mls/hr IVCONT .Q8H LUIS ALFREDO Piperacillin Sod/Tazobactam (Sod 3.375 gm/ Sodium Chloride) 50 mls @ 100 mls/hr IV Q6H LUIS ALFREDO Magnesium Hydroxide (Milk Of Magnesia 30 Ml Oral.Susp) 30 ml PO DAILY PRN PRN Reason: Constipation Melatonin (Melatonin 3 Mg Tablet) 6 mg PO BEDTIME PRN PRN Reason: Insomnia Morphine Sulfate (Morphine Sulfate 4 Mg/Ml Cartridge) 4 mg IVPUSH Q4H PRN; Protocol PRN Reason: Pain, Severe (Pain Scale 7-10) Ondansetron HCl (Ondansetron Hcl 4 Mg/2 Ml Vial) 4 mg IVPUSH Q8H PRN PRN Reason: Nausea and Vomiting Sodium Chloride (0.9 % Sodium Chloride Flush 3 Ml Syringe) 3 ml IVFLUSH [facility] Sodium Chloride (0.9 % Sodium Chloride Flush 3 Ml Syringe) 3 ml IVFLUSH QSHIFT [facility] Home Medications ?Medication ?Instructions ?Recorded ?Confirmed ?Last Taken ?Type alprazolam 2 mg tablet 2 mg PO BID 06/30/24 07/11/24 Unknown History epinephrine 0.3 mg/0.3 mL IM ONCE 06/30/24 07/11/24 Unknown History injection, auto-injector lithium carbonate 450 mg 450 mg PO BID 06/30/24 07/11/24 Unknown History tablet,extended release quetiapine 300 mg tablet,extended mg PO 06/30/24 07/11/24 Unknown History release 24 hr Physical Exam Vital Signs: Vital Signs: Last Vital Signs Temp 98.4 F 09/02/24 12:05 Pulse 92 09/02/24 12:05 Resp 16 09/02/24 12:05 BP 141/76 H 09/02/24 12:05 Pulse Ox 99 09/02/24 12:05 O2 Del Method Room Air 09/02/24 12:05 BMI result Body Mass Index 25.2 Const: General: cooperative, healthy appearing, comfortable and anxious Orientation/consciousness: oriented to person, oriented to place and oriented to time Eyes: Other: Nonicteric Resp: Other: Clear Effort & Inspection: normal respiratory effort Auscultation: clear to auscultation bilaterally Cardio: Rate: regular rate Rhythm: regular rhythm GI: Other: Abdomen is soft nondistended slightly tender in the right lower quadrant no guarding no rebound no peritoneal signs active bowel sounds Skin: Other: Nonicteric Neuro: General: oriented to person, oriented to place and oriented to time Cranial nerves: Yes CN's II-XII intact bilaterally Psych: Appearance: grossly normal Mental Status: mental status grossly normal Affect: Anxious affect present Attitude: cooperative Thought process: Normal thought process present Thought content: Normal thought content present Insight: Good insight present (Psych) Judgement: Good judgement present (Psych) Results Results Labs: Short CBC 09/02/24 Range/Units 09:24 WBC 10.0 (4.8-10.8) X10*3/uL Hgb 15.3 (14.0-18.0) g/dl Hct 44.3 (42.0-52.0) % Plt Count 204 (160-400) X10*3/uL BMP 09/02/24 09:24 Sodium 139 Potassium 4.1 Chloride 109 H Carbon Dioxide 24 BUN 6 L Creatinine 0.79 Calcium 9.6 Liver Function 09/02/24 Range/Units 09:24 Total Bilirubin 0.7 (0.0-1.0) mg/dL AST 23 (5-37) U/L ALT 24 (0-40) U/L Alkaline Phosphatase 87 (39-117) U/L Albumin 4.5 (3.5-5.0) g/dL Urine 09/02/24 Range/Units 11:57 Urine Color Yellow Urine Appearance Clear Urine pH 7.0 (5.0-9.0) Ur Specific [place] 1.015 (1.005-1.025) Urine Protein 30 (1+) H (Neg-Trace) mg/dL Urine Glucose (UA) Negative (Negative) mg/dL Abdomen CT scan report/results: report reviewed and image reviewed CT scan - pelvis: report reviewed and image reviewed Additional studies: Patient: Nelly Kevin MR#: [id number] : 1980 Acct:[id number] Age/Sex: 44 / M ADM Date: 09/02/24 Loc: HO.ED Attending Dr: Ordering Physician: Gabrielle Flannery Date of Service: 09/02/24 Procedure(s): CT abdomen pelvis w IV con Accession Number(s): [id number] cc: Mike Lowry MD; Gabrielle Flannery~ Report Number: [id number]: Total DLP = 469.00 mGy-cm EXAMINATION: CT ABDOMEN AND PELVIS WITH CONTRAST CLINICAL INFORMATION: Right lower quadrant pain. COMPARISON: None available. TECHNIQUE: Multidetector volumetric images were obtained from the superior aspect of the liver through the pubic symphysis following administration 85 mL of Omnipaque 350 intravenous contrast. Sagittal and coronal reformatted images were obtained on the technologist's workstation. Oral contrast: No This CT examination was performed using dose optimization techniques as appropriate, variously including the following: *Automated exposure control *Adjustment of mA and/or kV according to patient size (this includes techniques or standardized protocols for targeted exams where dose is matched to indication/reason for exam; i.e. extremities or head) *Use of iterative reconstruction technique DLP: 469 mGy centimeter. FINDINGS: LUNG BASES: Subsegmental atelectasis, lung bases. LIVER, GALLBLADDER, AND BILIARY TREE: Liver measures 15 cm. 9 mm hypodensity in the dome of the left hepatic lobe. Portal veins, hepatic veins and intrahepatic portion of the IVC are patent. No pericholecystic fluid collection or gallbladder wall thickening. No intrahepatic or extrahepatic biliary ductal dilatation. PANCREAS: No focal mass. No peripancreatic fluid collection. No main pancreatic ductal dilatation. SPLEEN: 10 cm. No focal lesion. ADRENAL GLANDS: No nodular lesions. KIDNEYS AND URETERS: No hydronephrosis. No gross renal mass.] 2 mm nonobstructing calculus in the right kidney. 1.2 cm cyst, left kidney. BLADDER: Fluid-filled prominent and extending suprapubic just below the umbilicus. GASTROINTESTINAL TRACT: There is a 1.8 cm maximum diameter retrocecal appendix with edematous/thickened wall and narrowed lumen. There is periappendiceal edema pattern trace of fluid. No peripheral enhancing fluid collection. No overt pneumoperitoneum. Scattered air-fluid levels in the small bowel loops right hemiabdomen. Abundant stool within the large intestine. No pneumatosis intestinalis. ABDOMINAL WALL: Fat-containing umbilical and periumbilical hernia. LYMPH NODES: Mild prominent mesenteric. VASCULAR: No aneurysm or dissection, abdominal aorta. Mixed plaques in the distal abdominal aorta wall and right femoral arteries. PELVIC VISCERA: Not enlarged prostate gland. OSSEOUS STRUCTURES: Multilevel thoracolumbar spondylosis more pronounced from L1-2 to L3-4 levels resulting in grade 1 retrolisthesis L2-3 and L3-4 and L4-5 levels. Spondylolysis pars interarticularis resulting in grade 1 anterolisthesis at L5-S1. S-shaped curvature of the lumbar spine with a levoconvex rotatory component apex at L2-[address]/CT abdomen pelvis w IV con IMPRESSION: Acute probably nonruptured retrocecal appendicitis with the periappendiceal edema pattern in no overt abscess or pneumoperitoneum. Reactive prominent mesenteric lymph nodes and regional ileus. Fleischner guidelines were followed. Electronically signed by: Jose Raya MD 09/02/2024 11:27 AM EDT RP Dictated By: Jose Gonzalez MD Signed By: <Electronically signed by Jose Alexander MD in OV> 09/02/24 1127 DD/ 1045 TD/TT: 09/02/24 1115 [employer]: Assessment and Plan (1) Acute appendicitis: Status: Acute Plan 44-year-old male with right lower quadrant pain for 2 days normal white count tender in the right lower quadrant CT scan consistent with findings for appendicitis. Plan is to admit carry out laparoscopic appendectomy NPO IV fluids IV Zosyn. Risks and benefits were discussed with the patient including but not limited to possible open procedure bleeding infection organ bowel injury abscess and despite this he wishes to proceed. Quality Stroke Does the patient have a stroke diagnosis?: No VTE Prior VTE?: No VTE Risk Level:: Surgical - low VTE Device Contraindication: N/A - Device Ordered VTE Drug Contraindication: Treatment Not Indicated Procedures Date of Service Date of Service: 09/02/24
[2024-09-02] MEDS: Lactated Ringers 1,000 ML 125 ML IVCONT ×2 (13:31→22:31)
--- NOTE | 2024-09-02 14:11 | PHA.MEDREC ---
Pharmacy Consult ? Medication Reconciliation Pharmacy has completed the medication reconciliation. Spoke to patient to confirm medication list.
--- NOTE | 2024-09-02 16:56 | PC.NURSE ---
Patient just got on the floor from ED, able just to take vitals, and Transportation was here stating he's going down for surgey. Admission assessment wasn't done since pt. been on the floor for less than 15 minutes.
--- NOTE | 2024-09-02 17:46 | HO.ANESPROP2 ---
[facility] Active Problems Active Problems: All Active Problems Acute appendicitis (Acute) Wound, open, foot (Acute) Past Medical History Functional capacity: independent ambulation Family History Family history of problems with anesthesia: No Surgical History Surgical History H/O colonoscopy History of ear surgery History of Problems with Anesthesia: No Social History Social History Are you a primary care program resident to a significant other at home: No Do you presently have visiting nurse or other home services: No Patient Tobacco Use Status: Current everyday Tobacco user Tobacco use type: Cigarette Cigarette Packs Per Day: 1 Cigarettes Per Day: 20.0 Years Smoked: 27 Meds Allergies Allergy/AdvReac Type Severity Reaction Status Date / Time egg Allergy Intermediate Gastrointestinal Verified 09/02/24 17:05 Upset SEAFOOD Allergy Severe ANAPHYLAXIS Uncoded 09/02/24 17:05 Active Medications: Current Medications Acetaminophen (Acetaminophen 325 Mg Tablet) 650 mg PO Q6H PRN PRN Reason: Pain, Mild 1-3,fever,headache Calcium Carbonate (Calcium Carbonate 750 Mg Tab.Chew) 750 mg PO Q4H PRN PRN Reason: Heartburn Lactated Ringer's (Lr) 1,000 mls @ 125 mls/hr IVCONT .Q8H [facility] Last Admin: 09/02/24 13:31 Dose: 125 mls/hr Piperacillin Sod/Tazobactam (Sod 3.375 gm/ Sodium Chloride) 50 mls @ 100 mls/hr IV Q6H [facility] Last Admin: 09/02/24 17:31 Dose: 100 mls/hr Magnesium Hydroxide (Milk Of Magnesia 30 Ml Oral.Susp) 30 ml PO DAILY PRN PRN Reason: Constipation Melatonin (Melatonin 3 Mg Tablet) 6 mg PO BEDTIME PRN PRN Reason: Insomnia Morphine Sulfate (Morphine Sulfate 4 Mg/Ml Cartridge) 4 mg IVPUSH Q4H PRN; Protocol PRN Reason: Pain, Severe (Pain Scale 7-10) Last Admin: 09/02/24 15:52 Dose: 4 mg Ondansetron HCl (Ondansetron Hcl 4 Mg/2 Ml Vial) 4 mg IVPUSH Q8H PRN PRN Reason: Nausea and Vomiting Sodium Chloride (0.9 % Sodium Chloride Flush 3 Ml Syringe) 3 ml IVFLUSH [facility] Last Admin: 09/02/24 16:37 Dose: Not Given Sodium Chloride (0.9 % Sodium Chloride Flush 3 Ml Syringe) 3 ml IVFLUSH [facility] Last Admin: 09/02/24 16:37 Dose: Not Given Home Medications ?Medication ?Instructions ?Recorded ?Confirmed ?Last Taken ?Type alprazolam 2 mg tablet 2 mg PO BID 06/30/24 09/02/24 09/02/24 History lithium carbonate 450 mg 450 mg PO BID 06/30/24 09/02/24 09/01/24 History tablet,extended release quetiapine 300 mg tablet,extended 600 mg PO BEDTIME 06/30/24 09/02/24 09/01/24 History release 24 hr omeprazole 20 mg tablet,delayed 20 mg PO DAILY PRN Acid Reflux 09/02/24 09/02/24 Unknown History release Exam Height,Weight and Vital Signs: Height 5 ft 8 in Weight 75.3 kg Last Vital Signs Temp 99.3 F 09/02/24 17:06 Pulse 88 09/02/24 17:06 Resp 16 09/02/24 17:06 BP 158/92 H 09/02/24 17:06 Pulse Ox 98 09/02/24 17:06 O2 Del Method Room Air 09/02/24 17:06 Pertinent Lab Results Pertinent Lab Results: Laboratory Tests 09/02/24 09/02/24 09/02/24 09:24 11:42 11:57 WBC 10.0 RBC 4.82 Hgb 15.3 Hct 44.3 MCV 91.9 MCH 31.7 MCHC 34.5 RDW 12.7 Plt Count 204 MPV 9.8 Immature Gran % (Auto) 0.5 H Neut % (Auto) 85.9 H Lymph % (Auto) 8.[address] [facility] % (Auto) 5.0 Eos % (Auto) 0.2 Baso % (Auto) 0.4 Lymph # (Auto) 0.[address] [facility] # (Auto) 0.5 Eos # (Auto) 0.0 Baso # (Auto) 0.0 Abs Immat Gran (auto) 0.05 H Absolute Neuts (auto) 8.6 H Absolute Nucleated RBC 0.000 Nucleated RBC % (auto) 0.0 Sodium 139 Potassium 4.1 Chloride 109 H Carbon Dioxide 24 Anion Gap 10 L BUN 6 L Creatinine 0.79 Estim Creat Clear Calc 117.8 Estimated GFR > 60 Random Glucose 130 H Lactic Acid 0.7 Calcium 9.6 Magnesium 1.8 Total Bilirubin 0.7 AST 23 ALT 24 Alkaline Phosphatase 87 C-Reactive Protein 0.14 Total Protein 7.1 Albumin 4.5 Lipase 72 Urine Color Yellow Urine Appearance Clear Urine pH 7.0 Ur Specific [place] 1.015 Urine Protein 30 (1+) H Urine Glucose (UA) Negative Urine Ketones Trace Urine Blood Negative Urine Nitrite Negative Ur Leukocyte Esterase Negative Urine RBC 0-2 Urine WBC 0-5 Ur Squamous Epith Cells 0-2 Urine Bacteria None Seen Hyaline Casts 0-2 Influenza Type A (PCR) NEGATIVE Influenza Type B (PCR) NEGATIVE RSV RNA Qual (PCR) NEGATIVE SARS-CoV-2 RNA (RT-PCR) NEGATIVE Airway TM Dist: >3cm Neck ROM: Full Heart: RRR Lungs: CTA Assessment and Plan Final Anesthetic Review Family History of Problems with Anesthesia: No History of Problems with Anesthesia: No
--- NOTE | 2024-09-02 17:56 | PC.NURSE ---
Report given to Farheen TAVARESU RN.
[2024-09-02] MEDS: Ketorolac Tromethamine 15 MG/ML VIAL IVPUSH (21:05)
--- NOTE | 2024-09-02 21:26 | W.PM.OPN ---
Operative Note Operative Note Date of Service: 09/02/24 Narrative: Preop diagnosis--acute appendicitis Postop diagnosis--acute appendicitis Procedure--laparoscopic appendectomy Surgeon--Yesica Anesthesia--general endotracheal tube anesthesia Patient is a 44-year-old male comes in with a 2 day history of abdominal pain now concentrated to the right lower quadrant area white count normal CT scan showing findings consistent with thickened distended appendix diagnosis acute appendicitis. Patient tender in this area plan is to carry out laparoscopic appendectomy Findings--acutely inflamed appendix. In grasping an elevating the tip it did break but there was not any true obvious spillage of any purulent material or fecal material Procedure-- Patient was brought to the operative room under Anesthesia guidance intubated he had compression stockings placed before induction received antibiotics scheduled. His abdomen was prepped and draped in standard surgical fashion. He did have a small umbilical hernia and the infraumbilical area was numbed up with Marcaine lidocaine and epinephrine mixture. The umbilical stalk was isolated and the skin dissected off revealing the hernia defect which was small about a 8 mm. 0 Vicryl pursestring suture was placed around the fascia here and then the Dawson trocar introduced after dilating the hernia defect digitally. Pneumoperitoneum was then established to 15 mmHg pressure. Port was then placed in the suprapubic area in the left lower quadrant area using local. The appendix was then identified in the right lower quadrant area and the tip was inflamed going into the mid appendix and the appendiceal cecal junction fine. The tip was grasped and elevated and doing so it broke and of the mesentery started to bleed. The tip of the appendix was placed on some of the fat in the right upper quadrant to be able to located easily at the end of the case. The mesentery was then taken down using a LigaSure isolating and dissecting out the mesentery to the base of the appendix and cecal junction. The appendiceal orifice was bleeding in the process but then we were able to come across this and stopped this with the LigaSure. The Endo-BETTY blue 45 load was then fired across the base of the appendix and the appendix was then placed in Endo-Catch bag along with the tip being retrieved and placed in the bag. The bag was removed from the umbilical infraumbilical port site. Pneumoperitoneum was then reestablished the right lower quadrant area was irrigated and suctioned out any and all clot material. The stump of the appendix cecal area looked fine and the mesentery where the appendiceal artery was looked intact without any bleeding. The ports were then removed under direct visualization. The infraumbilical port site was closed with the pursestring approximated and in doing so the hernia was closed off. Monocryl was used to close the skin edges Steri-Strips were placed and gauze dressing over the wounds with Tegaderm to secure. At the end of the case all sponge instrument needle counts were correct estimated blood loss was 6 cc specimens sent was the appendix. The patient was extubated returned stable to recovery room
--- NOTE | 2024-09-02 21:31 | HO.ANESPROP2 ---
[facility] Active Problems Active Problems: All Active Problems Acute appendicitis (Acute) Wound, open, foot (Acute) Past Medical History Functional capacity: independent ambulation Family History Family history of problems with anesthesia: No Surgical History Surgical History H/O colonoscopy History of ear surgery History of Problems with Anesthesia: No Social History Social History Are you a primary summer child caregiver to a significant other at home: No Do you presently have visiting nurse or other home services: No Patient Tobacco Use Status: Current everyday Tobacco user Tobacco use type: Cigarette Cigarette Packs Per Day: 1 Cigarettes Per Day: 20.0 Years Smoked: 27 Meds Allergies Allergy/AdvReac Type Severity Reaction Status Date / Time egg Allergy Intermediate Gastrointestinal Verified 09/02/24 17:05 Upset SEAFOOD Allergy Severe ANAPHYLAXIS Uncoded 09/02/24 17:05 Active Medications: Current Medications Acetaminophen (Acetaminophen 325 Mg Tablet) 650 mg PO Q6H PRN PRN Reason: Pain, Mild 1-3,fever,headache Calcium Carbonate (Calcium Carbonate 750 Mg Tab.Chew) 750 mg PO Q4H PRN PRN Reason: Heartburn Fentanyl (Fentanyl Citrate/Pf 100 Mcg/2 Ml Vial) 25 mcg IVPUSH Q5M PRN PRN Reason: Pain, Moderate to Severe (Pain Scale 4-10) Stop: 09/02/24 23:51 Lactated Ringer's (Lr) 1,000 mls @ 125 mls/hr IVCONT .Q8H [facility] Last Admin: 09/02/24 13:31 Dose: 125 mls/hr Piperacillin Sod/Tazobactam (Sod 3.375 gm/ Sodium Chloride) 50 mls @ 100 mls/hr IV Q6H [facility] Last Admin: 09/02/24 17:31 Dose: 100 mls/hr Ketorolac Tromethamine (Ketorolac Tromethamine 15 Mg/Ml Vial) 15 mg IVPUSH Q6H PRN PRN Reason: Pain, Severe (Pain Scale 7-10) Stop: 09/07/24 21:20 [place] Carbonate ([place] Carbonate Er 450 Mg Tablet.Er) 450 mg PO BID [facility] Lorazepam (Lorazepam 0.5 Mg Tablet) 0.5 mg PO BEDTIME PRN PRN Reason: Sleep Magnesium Hydroxide (Milk Of Magnesia 30 Ml Oral.Susp) 30 ml PO DAILY PRN PRN Reason: Constipation Melatonin (Melatonin 3 Mg Tablet) 6 mg PO BEDTIME PRN PRN Reason: Insomnia Morphine Sulfate (Morphine Sulfate 4 Mg/Ml Cartridge) 4 mg IVPUSH Q4H PRN; Protocol PRN Reason: Pain, Severe (Pain Scale 7-10) Last Admin: 09/02/24 15:52 Dose: 4 mg Naloxone HCl (Naloxone Hcl 0.4 Mg/Ml Vial) 0.04 mg IVPUSH Q5M PRN PRN Reason: Excessive sedation or RR < 8 Ondansetron HCl (Ondansetron Hcl 4 Mg/2 Ml Vial) 4 mg IVPUSH Q8H PRN PRN Reason: Nausea and Vomiting Ondansetron HCl (Ondansetron Hcl 4 Mg/2 Ml Vial) 4 mg IVPUSH ONCE PRN PRN Reason: Nausea and Vomiting Stop: 09/02/24 23:51 Oxycodone HCl (Oxycodone Hcl Immed Release 5 Mg Tablet) 5 mg PO Q4H PRN PRN Reason: Pain, Mild (Pain Scale 1-3) Oxycodone HCl (Oxycodone Hcl Immed Release 5 Mg Tablet) 10 mg PO Q4H PRN PRN Reason: Pain, Moderate(Pain Scale 4-6) Quetiapine Fumarate (Quetiapine Fumarate 300 Mg Tablet) 600 mg PO BEDTIME [facility] Sodium Chloride (0.9 % Sodium Chloride Flush 3 Ml Syringe) 3 ml IVFLUSH [facility] Last Admin: 09/02/24 16:37 Dose: Not Given Sodium Chloride (0.9 % Sodium Chloride Flush 3 Ml Syringe) 3 ml IVFLUSH [facility] Last Admin: 09/02/24 16:37 Dose: Not Given Home Medications ?Medication ?Instructions ?Recorded ?Confirmed ?Last Taken ?Type alprazolam 2 mg tablet 2 mg PO BID 06/30/24 09/02/24 09/02/24 History lithium carbonate 450 mg 450 mg PO BID 06/30/24 09/02/24 09/01/24 History tablet,extended release quetiapine 300 mg tablet,extended 600 mg PO BEDTIME 06/30/24 09/02/24 09/01/24 History release 24 hr omeprazole 20 mg tablet,delayed 20 mg PO DAILY PRN Acid Reflux 09/02/24 09/02/24 Unknown History release Exam Height,Weight and Vital Signs: Height 5 ft 8 in Weight 75.3 kg Last Vital Signs Temp 99.3 F 09/02/24 17:06 Pulse 88 09/02/24 17:06 Resp 16 09/02/24 17:06 BP 158/92 H 09/02/24 17:06 Pulse Ox 98 09/02/24 17:06 O2 Del Method Room Air 09/02/24 17:06 Pertinent Lab Results Pertinent Lab Results: Laboratory Tests 09/02/24 09/02/24 09/02/24 09:24 11:42 11:57 WBC 10.0 RBC 4.82 Hgb 15.3 Hct 44.3 MCV 91.9 MCH 31.7 MCHC 34.5 RDW 12.7 Plt Count 204 MPV 9.8 Immature Gran % (Auto) 0.5 H Neut % (Auto) 85.9 H Lymph % (Auto) 8.0 L [place] % (Auto) 5.0 Eos % (Auto) 0.2 Baso % (Auto) 0.4 Lymph # (Auto) 0.8 L [place] # (Auto) 0.5 Eos # (Auto) 0.0 Baso # (Auto) 0.0 Abs Immat Gran (auto) 0.05 H Absolute Neuts (auto) 8.6 H Absolute Nucleated RBC 0.000 Nucleated RBC % (auto) 0.0 Sodium 139 Potassium 4.1 Chloride 109 H Carbon Dioxide 24 Anion Gap 10 L BUN 6 L Creatinine 0.79 Estim Creat Clear Calc 117.8 Estimated GFR > 60 Random Glucose 130 H Lactic Acid 0.7 Calcium 9.6 Magnesium 1.8 Total Bilirubin 0.7 AST 23 ALT 24 Alkaline Phosphatase 87 C-Reactive Protein 0.14 Total Protein 7.1 Albumin 4.5 Lipase 72 Urine Color Yellow Urine Appearance Clear Urine pH 7.0 Ur Specific [place] 1.015 Urine Protein 30 (1+) H Urine Glucose (UA) Negative Urine Ketones Trace Urine Blood Negative Urine Nitrite Negative Ur Leukocyte Esterase Negative Urine RBC 0-2 Urine WBC 0-5 Ur Squamous Epith Cells 0-2 Urine Bacteria None Seen Hyaline Casts 0-2 Influenza Type A (PCR) NEGATIVE Influenza Type B (PCR) NEGATIVE RSV RNA Qual (PCR) NEGATIVE SARS-CoV-2 RNA (RT-PCR) NEGATIVE Airway Mallampati Class: II TM Dist: >3cm Neck ROM: Full Loose/Missing/Broken Teeth: Yes Heart: RRR Lungs: CTA Assessment and Plan Assessment Anesthesia Assessment: Anesthesia Plan Discussed and Smoking Cess. Discussed Final Anesthetic Review Family History of Problems with Anesthesia: No History of Problems with Anesthesia: No NPO: Yes ASA Class: II and Emergency Final Preanesthetic Review: Meds/Allgs Chart Reviewed, Consent Obtained/Reviewed and Anes Risks/Benef Reviewed Patient Risk: Low Procedure Risk: Intermediate Anesthetic Plan Anesthetic Plan: GA Disposition: Standard PACU
[2024-09-02] MEDS: Acetaminophen 1,000 MG/100 ML PIGGYBACK 400 MG IV (21:56)
[2024-09-02] MEDS: Lithium Carbonate ER 450 MG TABLET.ER PO (22:29)
[2024-09-02] MEDS: QUEtiapine Fumarate 300 MG TABLET 600 MG PO (22:29)
[2024-09-03] MEDS: ondansetron HCL 4 MG/2 ML VIAL IVPUSH (00:22)
[2024-09-03] MEDS: Piperacillin Sodium/Tazobactam 3.375 GM in 0.9 % Sodium Chloride 50 ML IV ×3 (00:26→11:46)
[2024-09-03 04:00] VITALS: BP 117/71; PULSE 69; RESP 17; TEMP 36.8; O2SAT 96
[2024-09-03] MEDS: oxyCODONE HCl Immed Release 5 MG TABLET 10 MG PO ×2 (04:53→11:45)
[2024-09-03] MEDS: Lactated Ringers 1,000 ML 125 ML IVCONT ×2 (07:09→14:50)
[2024-09-03 07:43] VITALS: BP 126/80; PULSE 62; RESP 17; TEMP 36.8; O2SAT 99
[2024-09-03] MEDS: Nicotine 21 MG PATCH.TD24 TRANSDERMA (08:10)
[2024-09-03] MEDS: QUEtiapine Fumarate 300 MG TABLET 600 MG PO (08:10)
[2024-09-03] MEDS: Lithium Carbonate ER 450 MG TABLET.ER PO (08:10)
[2024-09-03] MEDS: 0.9 % Sodium Chloride Flush 3 ML SYRINGE IVFLUSH ×2 (08:19→08:20)
--- NOTE | 2024-09-03 10:33 | MHC.CM.PN ---
PT REPORTS HE LIVES WITH FAMILY AND IS INDEPENDENT WITH CARE HE HAS NO SERVICES AND NO DME HE DECLINES TO COMPLETE A HCP PCP: JONATHAN DAVIDSON IMM DELIVERED DCP: HOME NO SERVICES VIA PRIVATE TRANSPORT
[2024-09-03 15:13] VITALS: BP 130/77; PULSE 105; RESP 17; TEMP 37.2; O2SAT 96
--- NOTE | 2024-09-03 16:35 | P.DS_ITS ---
DS: Providers Provider Date of Service: 09/03/24 Date of admission: 09/02/24 13:00 Date of discharge: 09/03/24 Primary care physician: Mike Lowry MD Admitting clinician: Laura Robert Attending physician on discharge: Laura Robert DS: Diagnosis Discharge Diagnosis (1) Acute appendicitis: Start date: 09/03/24 Status: Acute DS: Summary Status at Discharge Cognitive/behavioral status at discharge: good Functional status at discharge: independent ambulation Time Attestation Total time managing care of this patient today: 20 mintues. Discharge Coordination Time (in mins): pt presented with acute appendicitis and did well with lap appy for acute appendicitis dc home on po antibx for 5 days - augmentin po oxycodone and ibuprofen follow up in the office next week - call thursday for an appt Quality: Safe Use of Opioids Does Pt have an Active Cancer Diagnosis on the Problem List?: No Quality: Stroke Does the patient have a stroke diagnosis?: No Physical Exam Vital Signs: Vital Signs: Last Vital Signs Temp 99 F 09/03/24 15:13 Pulse 105 H 09/03/24 15:13 Resp 17 09/03/24 15:13 BP 130/77 09/03/24 15:13 Pulse Ox 96 09/03/24 15:13 O2 Del Method Room Air 09/03/24 15:13 O2 Flow Rate 2 09/02/24 21:57 BMI result Body Mass Index 27.6 GI: Other: soft appropriate tenderness DS: Data Data Completed and Pending Pending studies at discharge: Pending at discharge 09/02/24 21:37 Surgical [PTH] Routine Labs on day of discharge: Preliminary micro results at discharge 09/02/24 11:51 Blood Culture - Preliminary Blood - Venous No growth after 24 hours. 09/02/24 11:42 Blood Culture - Preliminary Blood - Venous No growth after [address] scan - abdomen: Radiologist's impression: ITS Impressions Abdomen/Pelvis CT 09/02/24 10:45 IMPRESSION: Acute probably nonruptured retrocecal appendicitis with the periappendiceal edema pattern in no overt abscess or pneumoperitoneum. Reactive prominent mesenteric lymph nodes and regional ileus. Fleischner guidelines were followed. Electronically signed by: Jose Raya MD 09/02/2024 11:27 AM EDT RP Discharge Plan Discharge Anticipated Discharge Date/Time: 09/03/24 16:25 Patient Disposition: Home, Self-Care Discharge Diagnosis: appendicitis Referrals: Mike Lowry MD [Primary Care Provider] - 1 Week Discharge Medications: New amoxicillin-pot clavulanate [Augmentin] 500-125 mg tablet 1 tab PO TID Qty: 15 0RF oxycodone 5 mg tablet 5 mg PO Q6H PRN (Reason: pain) Qty: 10 0RF Rx Instructions: Partial Fill upon patient request. Continued omeprazole 20 mg Tablet,Delayed Release (Dr/Ec) 20 mg PO DAILY PRN (Reason: Acid Reflux) lithium carbonate 450 mg tablet extended release 450 mg PO BID quetiapine 300 mg tablet extended release 24 hr 600 mg PO BEDTIME alprazolam 2 mg tablet 2 mg PO BID Discharge Orders: Discharge Order (Routine); Ordered 09/03/24 Ordered By: Laura Robert Diet: Advance to usual diet Activity on Discharge: No heavy lifting Print Language: Mongolian Care Plan Goals: pt can shower with tegaderm tomorrow and take off ond thursday and shower with steri strips on no lifting more than 10 lbs no straining if fever chills redness occurs call MD call surgical office for a fu appointment on thursday try to take mainly advil for the pain Health Concerns: fever chills Plan of Treatment: slow increase activity take antibiotics regular diet Assessment: pt doing well sp lap appy day before. had torn in OR so will give few days of augmentin Discharge Date/Time: 09/03/24 17:08
--- NOTE | 2024-09-04 12:20 | HO.POSTANES ---
Post Anesthesia Evaluation Post Anesthesia Evaluation Date of Service: 09/04/24 Anesthesia: General Endotracheal-GETA Mental Status: Awake Pain Control: Satisfactory Nausea/Vomiting: None Hydration: Adequate Anesthesia-Related Issues: No Anes. Related Issues
== END 2024-09-03 17:08 | disposition home or self-care (01) | DRG 399 ==
LOC: HO.ED 12:24 → HO.EDOVER 13:15 → HO.S3 15:41
PROVIDERS: Physician Assistant Medical; Admitting Provider Surgery; Emergency Provider Emergency Medicine; PCP Family Medicine; Visit Provider Surgery
PROC: 0DTJ4ZZ Resection of Appendix, Percutaneous Endoscopic Approach (ICD-10-PCS; CPT 44970; principal; 2024-09-02 17:30)
DX: K35.80 Unspecified acute appendicitis (principal); F17.210 Nicotine dependence, cigarettes, uncomplicated; Z71.6 Tobacco abuse counseling; Z20.822 Contact with and (suspected) exposure to COVID-19; Z79.899 Other long term (current) drug therapy
CPT/HCPCS: 0241U; 36415; 74177; 80053; 81001; 83605; 83690; 83735; 85025; 86140; 87040; 88304; 99285; J0131; J1100; J1171; J1885; J2003; J2250; J2270; J2405; J2543; J2704; J3010; J7120; Q9967

== ENCOUNTER → 2024-09-02 09:05 | Outpatient (BNV) | payer MEDICARE, MEDICAID, SELFPAY | PROVIDERS: Emergency Provider Emergency Medicine; PCP Family Medicine; Visit Provider Radiology Diagnostic Radiology | DX: I88.0 Nonspecific mesenteric lymphadenitis (principal); K56.7 Ileus, unspecified; K35.80 Unspecified acute appendicitis | CPT/HCPCS: 74177 ==

== ENCOUNTER → 2024-09-02 13:00 | Outpatient (BNV) | payer MEDICARE, MEDICAID, SELFPAY | PROVIDERS: Admitting Provider Surgery; Emergency Provider Emergency Medicine; PCP Family Medicine; Visit Provider Surgery | DX: K35.80 Unspecified acute appendicitis (principal) | CPT/HCPCS: 44970; 99024; 99222; 99238 ==

== ENCOUNTER 2025-02-25 09:05 | Outpatient (AMB) | payer MEDICARE, MEDICAID, SELFPAY ==
[2025-02-25 09:07] VITALS: BP 126/76; PULSE 119; RESP 16; TEMP 36.6; O2SAT 100; BMI 24.9
--- NOTE | 2025-02-25 09:07 | AM.OFFWIN_ITS ---
Intake Vital Signs 02/25/25 09:07 Height 5 ft 8 in Weight 164 lb BMI 24.9 BP 126/76 Blood Pressure Location Rt brachial Position Sitting Respiration 16 Pulse 119 H Pulse Source Pulse Oximeter Temp 97.8 F Temp Source Oral Pulse Oximetry (%) 100 Oxygen Delivery Method Room Air Intake Visit Reasons: EP Right ear pain Intake Note: Pt is here today c/o Rt ear blocked Patient Tobacco Use Status: Current everyday Tobacco user Allergies egg Allergy (Intermediate, Verified 02/25/25 09:13) Gastrointestinal Upset SEAFOOD Allergy (Severe, Uncoded 02/25/25 09:10) ANAPHYLAXIS Medication List - Last Reconciled 02/25/25 by Mildred Lui, JOURNEYMAN WELDER-BC alprazolam 2 mg PO BID lithium carbonate ER 450 mg PO BID omeprazole 20 mg PO DAILY PRN quetiapine ER 600 mg PO BEDTIME HPI HPI Comments History of Present Illness Details Chief Complaint The patient presents with a four-day history of his right ear feeling blocked, with occasional fluid drainage. History The patient is a 44-year-old male presenting with complaints of right ear pain and blockage. Ruptured tympanic membrane: - The patient reports that for the past four days, his right ear has felt blocked, and occasionally a small amount of water comes out. - He denies any associated fever, chills , sore throat, or recent exposure to water or trauma to the ear. - He reports a history of similar ear is sues in the past. - The patient has known allergies to sea food and eggs but no medication allergies. Past Medical History - History of previous, similar ear issue s. - Allergies: Seafood and eggs. Review of Systems - Ears: Reports right ear feels blocked with occasional fluid drainage for four days. - Constitutional: Denies fever or chills . - HEENT: Denies sore throat. Physical Exam General: Awake, alert. No apparent distress Eyes: Sclera and conjunctiva clear bilaterally Nose: Nares patent, turbinates within normal limits, no sinus tenderness with palpation bilaterally Ears: Right ear with ruptured tympanic membrane, left tympanic membrane intact and clear Throat: Moist mucosa membrane, pharynx within normal limits Cardiovascular: Regular rate and rhythm Respiratory: Clear to auscultation bilaterally Results Medical Decision Making The patient is a 44-year-old male presenting with a 4-day history of right ear blockage and occasional drainage. He denies recent trauma or water exposure. Physical examination revealed a ruptured right tympanic membrane, while the left ear was unremarkable. The diagnosis is a ruptured eardrum, which typically heals independently. However, to aid healing and prevent infection, antibiotic ear drops will be prescribed. Given that some perforations do not close on their own and may require specialist intervention, the patient must follow up with his primary care provider for re-evaluation and a potential referral to an ENT specialist to ensure complete resolution. Plan 1. Ruptured Tympanic Membrane, Right Ear - Physical exam confirms a ruptured righ t eardrum. - CiproDex ear drops will be prescribed, with instructions to place 4 drops in the right ear twice daily for 7 days. - The patient is advised to follow up wi th his primary care provider, Dr. Greenwood, for re-evaluation and potential referral to an ENT specialist to ensure the perforation has healed. - Visit notes will be sent to the dorene chicas's PCP. - The patient was counseled to keep the ear dry, avoid swimming without an earplug, and refrain from inserting anything into the ear canal. Patient Instructions - You will be prescribed CiproDex ear dr ops. Use 4 drops in your right ear twice a day for 7 days. - Keep your right ear dry. Do not go swi mming unless you wear an earplug. - Do not insert anything into your ear c anal, including Q-tips. You can gently clean the outside of your ear. - You need to follow up with your primar care doctor, Dr. Rigoberto Seay, to make sure the eardrum has healed. - It is recommended to call your doctor' s office on Thursday to ensure they have received the notes from this visit and to schedule a follow-up appointment. - If the eardrum does not heal on its ow n, you may need to see an ear, nose, and throat (ENT) specialist. Consent Patient was informed and verbally consented to the use of an ambient scribe for clinic note documentation during this visit. [facility] Surgical History H/O colonoscopy History of ear surgery Social History Household Members: Family Housing: House Are you a primary daycare director to a significant other at home: No Do you presently have visiting nurse or other home services: No Patient Tobacco Use Status: Current everyday Tobacco user Tobacco use type: Cigarette Cigarette Packs Per Day: 1 Cigarettes Per Day: 20.0 Years Smoked: 27 Second Hand Smoke Exposure: Yes service: No Physical Exam Vital Signs: Last Vital Signs Temp 97.8 F 02/25/25 09:07 Pulse 119 H 02/25/25 09:07 Resp 16 02/25/25 09:07 BP 126/76 02/25/25 09:07 Pulse Ox 100 02/25/25 09:07 Oxygen Delivery Method Room Air 02/25/25 09:07 BMI result Body Mass Index 24.9 Assessment & Plan Assessment & Plan (1) Otitis media with rupture of tympanic membrane: Code(s): H66.90 - Otitis media, unspecified, unspecified ear; H72.90 - Unspecified perforation of tympanic membrane, unspecified ear Qualifiers: Laterality: right Qualified Code(s): H66.91 - Otitis media, unspecified, right ear; H72.91 - Unspecified perforation of tympanic membrane, right ear Plan . Medications: New ciprofloxacin-dexamethasone 0.3-0.1 % 4 drps otic (ears) BID 7.5 mL 0RF 7 days Coding Level of Care Code Est Pt Level 3 (06555) Diagnoses Otitis media of right ear with rupture of tympanic membrane H66.91; H72.91 Laterality: right
== END 2025-02-25 09:23 | disposition home or self-care (01) ==
PROVIDERS: PCP Family Medicine; Visit Provider Nurse Practitioner Family
DX: H66.91 Otitis media, unspecified, right ear (principal); H72.91 Unspecified perforation of tympanic membrane, right ear

== ENCOUNTER → 2025-02-25 09:05 | Outpatient (BNVA) | payer MEDICARE, MEDICAID, SELFPAY | PROVIDERS: PCP Family Medicine; Visit Provider Nurse Practitioner Family | DX: H66.91 Otitis media, unspecified, right ear (principal); H72.91 Unspecified perforation of tympanic membrane, right ear | CPT/HCPCS: 99212 ==